=== PATIENT | female | born 1970 | race Caucasian/White ===

== ENCOUNTER 2017-08-09 15:07 | Emergency (ER) | payer MEDICAID ==
[~2017-08-09] VITALS: Ht 167.6 cm; Wt 81.8 kg
[~2017-08-09 15:07] MED LIST: TRAM50TA4 PO; TRAZ-144 PO
[2017-08-09 17:42] LABS: BASOPHILS % (AUTO) 0.5 % (0.0-2.0); EOSINOPHILS % (AUTO) 1.4 % (1.0-6.0); HEMOGLOBIN 12.6 g/dL (12.0-16.0); LYMPHOCYTES # (AUTO) 0.9 K/uL (1.0-4.8); LYMPHOCYTES % (AUTO) 15.6 % (22.0-44.0); MEAN CORPUSCULAR HEMOGLOBIN 34.6 pg (26.0-34.0); MEAN CORPUSCULAR HGB CONC 34.1 G/dL (31.0-37.0); MEAN CORPUSCULAR VOLUME 102 fL (80-100); MONOCYTES # (AUTO) 0.3 K/uL (0.1-1.0); MONOCYTES % (AUTO) 5.2 % (2.0-9.0); NEUTROPHILS # (AUTO) 4.7 K/uL (1.8-7.7); NEUTROPHILS % (AUTO) 77.3 % (40.0-70.0); PLATELET COUNT (AUTO) 130 K/uL (150-450); RED BLOOD CELL COUNT(AUTO) 3.65 MIL/uL (4.00-5.20); RED CELL DISTRIBUTION WIDTH 18.4 % (11.5-14.5)
[2017-08-09] MEDS ORDERED: SODIUM CHLORIDE 0.9% 1,000 ML IV ONE (17:45)
[2017-08-09] MEDS ORDERED: ONDANSETRON HCL 4 MG/2 ML VIAL IVP ONE ×2 (17:45→19:00)
[2017-08-09] MEDS ORDERED: ChlordiazePOXIDE HCL 25 MG CAPSULE PO ONE ×2 (17:45→19:00)
[2017-08-09] MEDS ORDERED: LORazepam 2 MG/ML VIAL IVP ONE (17:45)
[2017-08-09 17:51] LABS: CALCIUM, TOTAL 8.5 mg/dL (8.8-10.5); CREATININE 1.73 mg/dL (0.60-1.30)
[2017-08-09 17:56] LABS: ALBUMIN 3.5 g/dL (3.4-5.0); BILIRUBIN,TOTAL 0.6 mg/dL (0.1-1.0); TOTAL PROTEIN, SERUM 8.1 g/dL (6.4-8.2)
[2017-08-09 17:58] LABS: AMMONIA 15 umol/L (11-32)
[2017-08-09 17:59] LABS: TROPONIN I < 0.02 ng/mL (0.00-0.05)
[2017-08-09 18:10] LABS: AMPHET/METH SCREEN,URINE NEGATIVE (NEGATIVE); BARBITURATE SCREEN, URINE NEGATIVE (NEGATIVE); BENZODIAZEPINES SCREEN,URINE NEGATIVE (NEGATIVE); CANNABINOID SCREEN,URINE NEGATIVE (NEGATIVE); COCAINE SCREEN,URINE NEGATIVE (NEGATIVE); METHADONE SCREEN, URINE NEGATIVE (NEGATIVE); OPIATE SCREEN,URINE NEGATIVE (NEGATIVE)
[2017-08-09 18:12] LABS: PHENCYCLIDINE SCREEN,URINE NEGATIVE (NEGATIVE)
[2017-08-09] MEDS ORDERED: MAGNESIUM SULFATE 2 GM, MVI, ADULT NO.1 WITH VIT K 10 ML, THIAMINE HCL 100 MG, FOLIC AC... IV ONE ×5 (18:15)
[2017-08-09 18:17] LABS: APPEARANCE,URINE TURBID (CLEAR); GLUCOSE, URINE (UA) NEGATIVE (NEGATIVE); KETONES,URINE 40 mg/dL (NEGATIVE); LEUKOCYTE ESTERASE ,URINE LARGE (NEGATIVE); NITRATE,URINE POSITIVE (NEGATIVE); OCCULT BLOOD,URINE LARGE (NEGATIVE); PH,URINE 5.5 (5.0-8.0); PROTEIN,URINE SEE CONFIRM (NEGATIVE)
[2017-08-09 18:35] LABS: BILIRUBIN,URINE PRELIM. POSITIVE (NEGATIVE)
[2017-08-09 18:40] LABS: SULFOSALICYLIC ACID,URINE 4+ (Negative)
[2017-08-09 18:41] LABS: RBC,URINE >100 /HPF (0-2); WBC,URINE >100 /HPF (0-5)
[2017-08-09 18:42] LABS: BACTERIA,URINE Many /HPF (None Seen); SQUAMOUS EPITHELIAL CELL,UR Many /LPF (None Seen)
[2017-08-09 20:48] VITALS: BP 156/103
== END 2017-08-09 20:50 | disposition home or self-care (01) ==
LOC: EMS 16:32
DX: E86.0 Dehydration (principal); N39.0 Urinary tract infection, site not specified; F10.129 Alcohol abuse with intoxication, unspecified; K70.10 Alcoholic hepatitis without ascites; N28.9 Disorder of kidney and ureter, unspecified; F17.210 Nicotine dependence, cigarettes, uncomplicated; Z88.8 Allergy status to other drugs, medicaments and biological substances; Y90.1 Blood alcohol level of 20-39 mg/100 ml
CPT/HCPCS: 36415; 80053; 80307; 81001; 82140; 83880; 84484; 85025; 87086; 93005; 96365; 96374; 96375; 99285; G0480; J2060; J2405; J3411; J3475; J3490 ×2; J7030

== ENCOUNTER 2021-09-07 09:26 | Day surgery (SDC) | payer OTHER ==
[~2021-09-07] VITALS: Ht 167.6 cm; Wt 105.0 kg
[~2021-09-07 09:26] MED LIST changes: +SODIUM CHLORIDE 0.9% 1,000 ML IV ONE; +SODIUM CHLORIDE 0.9% 1,000 ML ONE; -TRAM50TA4 PO; -TRAZ-144 PO
[2021-09-07 09:45] LABS: COVID AG,FIA SOURCE NASOPHARYNGEAL
[2021-09-07] MEDS ORDERED: HYDR-4527 PO (10:29)
[2021-09-07] MEDS ORDERED: PSYL575P22 PO (10:29)
[2021-09-07] MEDS ORDERED: POLY17PO47 PO (10:29)
[2021-09-07] MEDS ORDERED: MELA5TAB40 PO (10:29)
[2021-09-07] MEDS ORDERED: SODI5POW3 PO (10:32)
[2021-09-07] MEDS ORDERED: FLUO20CA36 PO (10:32)
[2021-09-07] MEDS ORDERED: AMLO-257 PO (10:32)
[2021-09-07] MEDS ORDERED: GABA-1181 PO (10:34)
[2021-09-07] MEDS ORDERED: CHOL25TA4 PO (10:35)
[2021-09-07] MEDS ORDERED: ACAM333T7 PO (10:35)
[2021-09-07] MEDS ORDERED: SEVE0.8P6 PO (10:36)
[2021-09-07 11:22] LABS: GLUCOMETER DEV NAME(LOC) SDS.; GLUCOSE,POINT OF CARE 78 MG/DL (70-110)
[2021-09-07] MEDS ORDERED: PROPOFOL 1% 20 ML VIAL IVP ONE (12:00)
== END 2021-09-07 16:30 ==
LOC: SURGERY 09:26
PROVIDERS: ATTEND Internal Medicine Gastroenterology
DX: D12.3 Benign neoplasm of transverse colon (principal); K64.0 First degree hemorrhoids; K57.30 Diverticulosis of large intestine without perforation or abscess without bleeding; K44.9 Diaphragmatic hernia without obstruction or gangrene; K59.00 Constipation, unspecified; I10 Essential (primary) hypertension; K29.70 Gastritis, unspecified, without bleeding; Z88.1 Allergy status to other antibiotic agents; Z88.8 Allergy status to other drugs, medicaments and biological substances; Z79.899 Other long term (current) drug therapy; Z98.890 Other specified postprocedural states
CPT/HCPCS: 45385; 43239; 87426; 82962; 88305; 88312; 88313; C1769; J2704; J7030; C9803